=== PATIENT | female | born 1960 | race Caucasian/White ===

== ENCOUNTER → 2019-12-01 10:36 | Outpatient (CLI) | payer OTHER, SELFPAY ==
[2019-12-01 12:18] LABS: Absolute Lymphocyte Count 1.64 X10^3/uL (0.83-4.51); Absolute Neutrophil Count 2.9 X10^3/uL (2.0-7.7); Basophil# 0.05 X10^3/uL; Eosinophil# 0.31 X10^3/uL; Eosinophils% 5.9 % (0-5); Hemoglobin 14.1 g/dL (12.0-15.0); Lymphocyte # 1.64 X10^3/ul (4.0); Lymphocyte % 31.3 % (19-41); Mean Corp Hgb Conc 33.6 g/dL (32-36); Mean Corpuscular Hgb 31.1 pg (27.0-32.0); Mean Corpuscular Volume 92.5 fL (81-99); Mean Platelet Vol. 9.7 fl (6.2-12.0); Monocyte# 0.34 X10^3/uL; Monocyte% 6.5 % (0-10); NRBC Flagged by Analyzer 0 % (0-5); Neutrophil # 2.88 X10^3/uL (2.7-7.7); Neutrophil % 54.9 % (47-70); Platelet Count 205 K/mm3 (150-450); RBC Distribution Width CV 11.9 % (11.6-14.6); RBC Distribution Width SD 41.1 fl (35.1-43.9); Red Blood Count 4.54 M/mm3 (4.2-5.4); White Blood Count 5.2 K/mm3 (4.4-11.0)
[2019-12-01 12:43] LABS: ALB/GLOB Ratio 1.1 RATIO (0.9-2.4); AST(SGOT) 27 U/L (15-37); Alanine Aminotransfer ALT/SGPT 27 U/L (13-56); Albumin, Serum 3.5 g/dL (3.2-5.0); Alkaline Phosphatase 96 U/L (45-117); Anion Gap 6 (5-15); BUN 11 mg/dL (7-18); BUN/Creat Ratio 14.2 RATIO (10-20); Calcium,Total 8.9 mg/dL (8.5-10.1); Chloride 106 mmol/L (98-107); Creatinine, Serum 0.78 mg/dL (0.55-1.02); EST Glomerular Filtration Rate 81 mL/min (>60); Est Glom Filt Rate - Afr Amer 98 mL/min (>60); Globulin 3.2 g/dL (2.2-4.2); Glucose 87 mg/dL (74-106); Potassium 3.8 mmol/L (3.5-5.1); Protein, Total 6.7 g/dL (6.4-8.2); Sodium Level 141 mmol/L (136-145)
== END ==
PROVIDERS: Family Medicine; Visit Provider Podiatrist
DX: Z01.818 Encounter for other preprocedural examination (principal)
CPT/HCPCS: 36415; 80053; 85025

== ENCOUNTER 2019-12-12 08:27 | Day surgery (SDC) | payer OTHER, SELFPAY ==
[2019-12-12 08:42] VITALS: BP 146/97; PULSE 67; RESP 16; TEMP 37; O2SAT 100; BMI 20.6
[2019-12-12] MEDS: Lactated Ringers 1,000 ML 100 ML IV ×2 (08:49→14:06)
[2019-12-12] MEDS: Cefazolin 2 GM in 0.9% Normal Saline 100 ML IV (09:45)
--- NOTE | 2019-12-12 10:00 | RAD_ITS ---
STUDY: X-RAY - LEFT FOOT CLINICAL: Female, 59 years old. Intraoperative documentation images of arthrodesis and bunionectomy. TECHNIQUE: 2 intraoperative digital documentation view(s) of the foot. COMPARISON: None. FINDINGS: 2 minutes and 24 seconds of exposure time was utilized for a total DAP of 17.1229 cGy/cm2. 2 images show arthrodesis of the first TMT joint. No complications are identified. RAD/Foot min 3 Views IMPRESSION: Intraoperative digital documentation images as described. Electronically Signed: Ebenezer Oakes MD at 16:03 EST , Service support ,
--- NOTE | 2019-12-12 10:00 | BUN_PTH ---
PATIENT: RICK KAUR LOC: [facility] [place] U#:[id number] AGE/SX: 59/F ROOM: RE12/12/[address]: Dr. Dax Glez DPM : 1960 BED: DIS: 12/12/2019 SPEC #: [id number] RECD: 12/12/19 13:23 STATUS: HILDA REAbel #: [id number] KEVIN: 12/12/19 10:[address]: Dax Glez DEPT: SURGICAL PATHOLOGY RECD BY: Nany Abebe ENTERED: 12/15/19 08:37 SP TYPE: BUNION OTHR DR: Dr. Adis Spann MD Tissues: A - Bony tissue, NOS B - Bony tissue, NOS Procedures: Decalcification bone/plaque Surgery Specimen Level III HEADER OPERATION: First metatarsal cuneiform lapidus arthrodesis / fusion bunionectomy PRE-OP DIAGNOSIS: Left foot bunion TISSUE SUBMITTED: A - Left foot bunion, B - Second metatarsal plantar plate MICROSCOPIC DIAGNOSIS A. Left foot bunion: A piece of bone with reactive changes, clinically bunion. B. Second metatarsal plantar plate: Fragments of dense fibroconnective tissue, cartilaginous tissue and reactive synovial tissue. ANDRE:aiden 12/18/19 MICROSCOPIC DESCRIPTION Slides are reviewed. GROSS DESCRIPTION A - Received in fixative is one container labeled with the patient's name and designated left foot bunion. The specimen consists of a piece of bone measuring 1.5 x 1.5 x 0.3 cm. The entire specimen is submitted in one cassette after decalcification. B - Received in fixative is one container labeled with the patient's name and designated second metatarsal plantar plate. The specimen consists of two pieces of indurated tissue measuring 1 x 1 x 0.2 cm. The entire specimen is submitted in one cassette. / ANDRE:aiden 12/15/19 TC:5 CPT: 13098 x2, 29990
[2019-12-12] MEDS: Bupivacaine Mpf 0.5% 30 ML VIAL (12:54)
--- NOTE | 2019-12-12 13:26 | PCM.OPRPT ---
Report of Operation Date of Procedure: 12/12/19 Pre-Operative Diagnosis: Hallux valgus bunion left foot. Rupture of 2nd MTPJ plantar plate, left foot Post-Operative Diagnosis: Hallux valgus bunion left foot. Rupture of 2nd MTPJ plantar plate, left foot. Adhesions flexor tendons 2nd MTPJ, left foot Surgery/Procedure Performed:: 1st metatarsal cuneiform arthrodesis lapidus bunionectomy, left foot. 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 Snehal Mcclendon Type of Anesthesia:: General, Local Specimen's removed: Bunion left foot sent to pathology. Debrided plantar plate 2nd MTPJ left foot sent to pathology Estimated Blood Loss (mL): 30mL Description of Procedure: Indications: This is a 59 year old female with chronic left hallux valgus bunion and sub 2nd metatarsal phalangeal joint pain despite nonsurgical treatment. She has difficulty walking and doing daily activities due to the pain. Pre op workup included foot xrays, as well as MRI. MRI confirmed left sub 2nd MTPJ plantar plate rupture. Patient has clinical hallux valgus bunion with 1st ray hypermobility. There is noted instability to the left 2nd MTPJ plantar plate. Since symptoms persist despite nonsurgical care we discussed surgical options. We discussed the conditions and treatment options. From surgical standpoint we discussed 1st tarsometatarsal lapidus arthrodesis bunionectomy with repair of 2nd MTPJ plantar plate/flexor tendon. We did discuss possible 2nd metatarsal shortening osteotomy. Reviewed the procedures, possible benefits vs risks, goals, expectations, and estimated healing time. Generally speaking advised that post operatively he will need to be nonweightbearing for at least 3-4 weeks, then 4 weeks in a walking immobilizing boot, possibly longer, advised it may take 12 months or more for complete healing. She expressed understanding and agreement. No guarantees were given nor implied. No warranties were given. Patient freely signed the consent forms and elected to proceed forward with the procedures. Operative procedure: The patient was brought back into the operating room and was placed on the operating room table in the supine position. Patient was carefully secured to the operating room table with a safety belt around patient's waist. A timeout was performed and the patient was properly identified and the surgical plan was confirmed. The patient did received 2g of intravenous Cefazolin for antibiotic prophylaxis. The patient received general anesthesia per the anesthesia team. A well padded pneumatic tourniquet was applied around the left ankle. The left foot was scrubbed, prepped and draped in the usual aseptic fashion. Further attention was directed to the left foot. There was noted to be hallux valgus bunion with 1st toe partially underriding the 2nd toe, the hallux was laterally deviated, there was hypermobility of the 1st ray, there was exostosis to the medial 1st metatarsal head, there was noted to be positive dorsal drawer to the 2nd metatarsal phalangeal joint. The left foot was exsanguinated using an Esmarch bandage and the ankle pneumatic tourniquet was inflated to 250mmHg. A total of 10mL of 0.5% Bupivacaine plain was given as a local nerve block around the 1st and 2nd rays on the left foot. Left 1st tarsometatarsal Lapidus arthrodesis bunionectomy: A linear longitudinal skin incision was medially along the medial 1st metatarsal cuneiform joint as well as overlying the 1st metatarsal phalangeal joint. This was done using a 15 blade. Careful dissection was completed down to the capsule of the 1st metatarsal cuneiform joint, and it was incised using a 15 blade and partially reflected exposing the joint surfaces. The tibialis anterior tendon was kept intact on the 1st cuneiform. All cartilage from the 1st metatarsal cuneiform joint surfaces (posterior aspect of the base of the 1st metatarsal and the anterior aspect of the medial cuneiform) were debrided away and was removed down to bleeding bone. This was done with a curette as well as a powered rasp and saw, being sure not to cause osteonecrosis. The site was flushed out with copious amounts of normal saline solution. The surfaces were fenestrated using a powered drill to aid fusion. The 1st metatarsal was reduced into normal position. The site was fixated use rigid open reduction internal fixation, using 1 Arthrex cannulated 3.5mm FT compression screw as well as 1 Arthrex plantar plate, using a total of 4 locking screws, and 1 partially threaded cannulated cortical screw across the fusion site. There was very good compression and bone to bone contract with the prepped fusion site, in good alignment.The fusion site was rigid and very stable. This was checked and confirmed with intraoperative fluoroscopy. There was noted to be some intercuneiform instability and the proximal locking screws did got across the 1st and 2nd cuneiform joint and also added extra cannulated 3.5mm FT compression screw across the 1st and 2nd inter cuneiform joint. This was all done using rigid open reduction internal fixation technique. There was excellent stability present. There was noted to be a residual medial and dorsal eminence to the 1st metatarsal head. Careful dissection was completed down to the 1st metatarsal phalangeal joint capsule and it was incised, it was partially reflected. The medial eminence was resected using a powered sagittal saw, the resected bone was sent to pathology. Also, there was noted to be significant contracture of the lateral 1st metatarsal phalangeal joint as well as the adductor hallucis tendon which was causing continued lateral deviation of the 1st toe into the 2nd toe. Therefore a small skin incision was overlying the dorsal lateral 1st metatarsal phalangeal joint. Dissection was completed down to the lateral capsule of the 1st MTPJ and adductor hallucis tendon which were released using a 15 blade. The hallux was now in rectus position. There was was now normal range of motion to the 1st metatarsal phalangeal joint. There was smooth normal gliding range of motion of the 1st metatarsal phalangeal joint at this time with normal alignment. The joint was in good alignment. The surgical site was flushed out with copious amounts of normal saline solution. Tissues were healthy and viable at this time. The subcutaneous tissue layers were reapproximated using 3-0 Vicryl and 4-0 Vicryl and the skin was reapproximated using 4-0 Monocryl. Cavailon was painted to the edges of the sutured skin incision and steristrips were applied across the sutured skin incision. Left 2nd metatarsal phalangeal joint plantar plate repair/flexor tenolysis: A curvilinear skin incision was made overlying the plantar 2nd metatarsal phalangeal joint using a 15 scalpel blade. Careful dissection was completed down through the subcutaneous tissue layer. The flexor tendon sheath was identified, there were significant adhesions noted. The sheath was incised carefully being sure not to injure the tendons, and the adhesions of the flexor tendons were released (tenolysis) using a 15 blade. Otherwise the flexor tendons appeared healthy and viable, and they were retracted safely out of the way. The plantar plate was visualized and there was noted to be severe thickening and degeneration present, there was noted to be a complete rupture of the lateral plantar plate at the level of the plantar aspect of the MTPJ. There was instability of the 2nd MTPJ when stressing it. The plantar plate was debrided of all nonviable tissue, and this was sent to pathology as specimen. The plantar plate tear was repaired. In order for this to be completed a mini suturetak (Arthrex) was placed to the proximal phalanx bone. This was completed because there was a complete rupture of the plantar plate with nothing to suture / no tissue at the level of the base of the proximal phalanx, therefore the bone anchor had to be placed. The sutures were weaved through the proximal portion of the remaining plantar plate and this portion was advanced to the base of the proximal phalanx. This was repaired holding the 2nd toe in a slight plantarflexed position. This was reinforced with 0 prolene. At this time there was noted to be negative dorsal drawer test, and now there was excellent stability present to the plantar plate. Alignment of the joint was anatomic, and position of the 2nd toe was rectus in all planes when loading the foot. The site was flushed out with copious amounts of normal saline solution. The subcutaneous tissue was reapproximated using 4-0 Vicryl and the skin was reapproximated using 3-0 Nylon. It was determined a 2nd metatarsal osteotomy would not be completed as there is now excellent stability of the 1st ray. An additional 20 mL of 0.5% Bupivacaine plain was given as a local nerve block around the 1st and 2nd rays. During the above procedure the pneumatic tourniquet was deflated first at 90 minutes, was down for 15 minutes, and was reinflated for an additional 29 minutes (total tourniquet time was 119 minutes), and there was immediate return of warmth and perfusion to the foot each time it was deflated, including to all 5 toes. CFT < 2 seconds to all toes. There was hemostasis achieved prior to incision closure. A dressing was applied which consisted of Betadine soaked adaptic, 4x4 gauze, Kerlix and dee bandage. Of note all vital structures, including all vital neurovascular structures were properly identified, they were protected and retracted as necessary throughout the above procedures. The patient tolerated the above procedure well and the anesthesia well with no complications. The patient was transported from the operating room to the recovery room with vital signs stable and in good condition. Post operative orders were placed, post operative instructions were reviewed with the patient several times pre operatively (today and pre op visits in office) - no weightbearing left foot, keep foot elevated for at least 50 minutes of every hour, keep dressing clean, dry and intact, follow up with me within 1 week in office - sooner if needed. This was typed out and these written instructions were also reviewed with patient and given to patient to take home. Percocet 5/325mg PO q 6 hours as well as Ibuprofen 600mg PO q 6 hours was prescribed to help with post op pain control. Aspirin 325mg PO once a day to help prevent a blood clot (patient declines hx of DVT, or hx of clotting disorder, no family hx of clotting disorder, patient relates her father has hx of injuring leg and subsequently developed a DVT and now is on blood thinner), also Augmentin 500/125mg PO q 12 hours was prescribed to help prevent infection as well. This was discussed with patient as well. OARRS was checked prior to prescribing. Patient relates he already has a walker as well as a knee walker at home she will use. A surgical shoe was also fitted and dispensed for left foot to help keep the foot protected. With patient's consent I did review the above with patient's Kash, who was here with her today. Grafts/Implants Used: 1 arthrex plantar plate w/ screws, mini suture denzel anchor 2nd toe, left - Complications None
--- NOTE | 2019-12-12 13:28 | PCM.DC.POD ---
Discharge Diet: Light diet - advance as tolerated Discharge Activity: May Not Drive, Use Walker Weight Bearing Status: No weight bearing - Strict nonweightbearing left foot Keep extremity elevated above heart level: Left Leg - Keep left foot elevated with pillows for at least 50 minutes of every hour Call your doctor if your incision/area has: Continuous Slow Oozing, Sudden Increased Bleeding, Foul Smelling Discharge Call your doctor if you observe: Fever of 101 or Higher, Coldness, Increased Pain, Chest pain, Calf discomfort, Uncontrolled pain Cleanse incision/area with: Do not get Incision Wet, Keep Dressing Clean & Dry Allergies/Adverse Reactions: Allergies codeine Adverse Reaction (Verified 12/03/19 09:39) PT UNSURE OF REACTION hallucinations medical tape Allergy (Uncoded 12/03/19 09:39) Rash Medications to take at Discharge Gluc Stovall/Chondro Stovall A/Vit C/Mn [Glucosamine-Chondroitin Cap] 1 ea PO QHS 12/03/19 Lisinopril [Prinivil] 10 mg PO QHS 12/03/19 Multivit-Minerals/Folic Acid [Women's Multivitamin Gummies] 1 tab PO QHS 12/03/19 [place]-3/Dha/Epa/Fish Oil [Fish Oil 1,000 mg Softgel] 1 ea PO QHS 12/03/19 Ibuprofen 600 mg PO Q6H #40 tab 12/12/19 Oxycodone HCl/Acetaminophen [Percocet 5/325] 1 - 2 tablet PO Q6H PRN PRN 4 Days #30 tablet 12/12/19 The following prescriptions were given: Ibuprofen 600 mg PO Q6H #40 tab Transmission Status: Pending to [facility] Oxycodone HCl/Acetaminophen [Percocet 5/325] 1 - 2 tablet PO Q6H PRN PRN 4 Days #30 tablet PRN Reason: Pain Transmission Status: Sent to [facility] Primary Care Physician: Adis Spann MD [Primary Care Provider] - Test Results: Test results from this visit will be discussed in further detail at your follow-up appointment, if applicable. Please Follow Up With: Dax Glez DPM - Dr. Glez cell: [phone] When: 1 week, sooner if needed. If needed over weekend call Dr. Glez
[2019-12-12 13:33] VITALS: BP 139/90; BP 146/97; PULSE 84; RESP 16; TEMP 36.2; O2SAT 100
[2019-12-12 13:45] VITALS: BP 144/97; BP 146/97; PULSE 62; RESP 16; O2SAT 100
--- NOTE | 2019-12-12 13:57 | RAD_ITS ---
STUDY: X-RAY - LEFT FOOT CLINICAL: Female, 59 years old. Postoperative evaluation. TECHNIQUE: 3 view(s) of the foot. COMPARISON: None. FINDINGS: Plate and screw fixation of the first and second cuneiforms and the first tarsometatarsal joint. 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 Minimal soft tissue swelling at the surgical site. Ossification of the distal Achilles tendon. RAD/Foot min 3 Views IMPRESSION: Plate and screw fixation of the first tarsometatarsal joint without complications. Electronically Signed: Ebenezer Oakes MD at 16:07 EST , Service support ,
[2019-12-12 14:00] VITALS: BP 146/97; BP 162/92; PULSE 63; RESP 16; O2SAT 100
[2019-12-12 14:22] VITALS: BP 142/92; BP 146/97; PULSE 57; RESP 16; TEMP 36.5; O2SAT 100
[2019-12-12 15:45] VITALS: BP 141/90; BP 146/97; PULSE 80; RESP 16; TEMP 37; O2SAT 100
== END 2019-12-12 15:45 | disposition home or self-care (01) ==
LOC: SDC 08:29 → AC 08:29
PROVIDERS: PCP Family Medicine; Referring Provider Podiatrist; Visit Provider Podiatrist
PROC: (CPT 28292; principal; 2019-12-12 09:45)
DX: M20.12 Hallux valgus (acquired), left foot (principal); M21.612 Bunion of left foot; Z20.828 Contact with and (suspected) exposure to other viral communicable diseases; Z79.899 Other long term (current) drug therapy; I10 Essential (primary) hypertension
CPT/HCPCS: 01480; 28200; 28297; 73630; 76000; 87426; 88304; 88305; 88311; C1713; C9803; J7120; J2405

== ENCOUNTER → 2020-04-14 09:52 | Outpatient (CLI) | payer OTHER, SELFPAY ==
[2020-04-14 12:30] LABS: Absolute Neutrophil Count 2.6 X10^3/uL (2.0-7.7); Basophil# 0.04 X10^3/uL; Basophil% 0.9 % (0-1); Eosinophil# 0.23 X10^3/uL; Eosinophils% 4.9 % (0-5); Hematocrit 41.8 % (37-47); Hemoglobin 14.4 g/dL (12.0-15.0); Mean Corp Hgb Conc 34.4 g/dL (32-36); Mean Corpuscular Hgb 30.9 pg (27.0-32.0); Mean Corpuscular Volume 89.7 fL (81-99); Mean Platelet Vol. 9.8 fl (6.2-12.0); Monocyte# 0.32 X10^3/uL; Monocyte% 6.8 % (0-10); NRBC Flagged by Analyzer 0 % (0-5); Neutrophil # 2.59 X10^3/uL (2.7-7.7); Neutrophil % 55.2 % (47-70); Platelet Count 201 K/mm3 (150-450); RBC Distribution Width CV 11.7 % (11.6-14.6); RBC Distribution Width SD 37.8 fl (35.1-43.9); Red Blood Count 4.66 M/mm3 (4.2-5.4); White Blood Count 4.7 K/mm3 (4.4-11.0)
[2020-04-14 13:01] LABS: ALB/GLOB Ratio 1.2 RATIO (0.9-2.4); AST(SGOT) 22 U/L (15-37); Alanine Aminotransfer ALT/SGPT 22 U/L (13-56); Albumin, Serum 3.8 g/dL (3.2-5.0); Alkaline Phosphatase 99 U/L (45-117); Anion Gap 6 (5-15); BUN 14 mg/dL (7-18); BUN/Creat Ratio 18.5 RATIO (10-20); Calcium,Total 9.2 mg/dL (8.5-10.1); Chloride 105 mmol/L (98-107); Creatinine, Serum 0.76 mg/dL (0.55-1.02); EST Glomerular Filtration Rate 83 mL/min (>60); Est Glom Filt Rate - Afr Amer 101 mL/min (>60); Globulin 3.2 g/dL (2.2-4.2); Glucose 89 mg/dL (74-106); Potassium 4.3 mmol/L (3.5-5.1); Sodium Level 141 mmol/L (136-145)
== END ==
PROVIDERS: PCP Family Medicine; Referring Provider Family Medicine; Visit Provider Family Medicine
DX: Z01.818 Encounter for other preprocedural examination (principal)
CPT/HCPCS: 36415; 80053; 85025

== ENCOUNTER 2020-05-14 07:47 | Day surgery (SDC) | payer OTHER, SELFPAY ==
--- NOTE | 2020-05-04 15:26 | NURSING ---
patient had moderna vaccine x2 last dose 04/09/20
[2020-05-14] VITALS (8 sets, daily range): BP systolic 130–153; BP diastolic 74–89; PULSE 50–63; RESP 16–18; TEMP 36.2–37.1; O2SAT 99–100; BMI 20.6
[2020-05-14] MEDS: Lactated Ringers 1,000 ML 100 ML IV (08:33)
--- NOTE | 2020-05-14 09:30 | BUN_PTH ---
PATIENT: RICK KAUR LOC: [facility] – [place] U#:[id number] AGE/SX: 59/F ROOM: RE05/14/[address]: Dr. Dax Glez DPM : 1960 BED: DIS: 05/14/2020 SPEC #: [id number] RECD: 05/14/20 12:38 STATUS: HILDA REAbel #: [id number] KEVIN: 05/14/20 09:[address]: Dax Glez DEPT: SURGICAL PATHOLOGY RECD BY: Nany Abebe ENTERED: 05/14/20 13:07 SP TYPE: BUNION OTHR DR: Dr. Adis Spann MD Tissues: Bony tissue, NOS Procedures: Decalcification bone/plaque Surgery Specimen Level III HEADER OPERATION: Foot first metatarsal cuneiform arthrodesis lapidus bunionectomy PRE-OP DIAGNOSIS: Hallux valgus bunion, contracted second toe TISSUE SUBMITTED: Right foot bunion MICROSCOPIC DIAGNOSIS Right foot bunion, bunionectomy: A piece of bone with reactive changes, clinically hallux valgus bunion, contracted second toe. A piece of dense fibroconnective tissue. ANDRE:aiden 05/19/2020 MICROSCOPIC DESCRIPTION Slides are reviewed. GROSS DESCRIPTION Received in fixative is one container labeled with the patient's name and designated right foot bunion. The specimen consists of two pieces of bone and soft tissue that in aggregate measure 1.5 x 2 x 0.3 cm. The specimen is totally submitted in one cassette after decalcification. / ANDRE:aiden 05/14/20 TC:5 CPT: 83479, 50752
--- NOTE | 2020-05-14 09:30 | RAD_ITS ---
STUDY: X-RAY - RIGHT FOOT CLINICAL: Female, 59 years old. PAIN TECHNIQUE: 5 view(s) of the foot. COMPARISON: None. FINDINGS: Intraoperative spot fluoroscopy images of the foot demonstrates postsurgical changes at the base of the first metatarsal. RAD/Foot 2 Views IMPRESSION: As above Electronically Signed: Driss Zavala DO at 23:44 EDT Tel , Service support ,
--- NOTE | 2020-05-14 09:39 | DCINST_ITS ---
Discharge Diet: Light diet - advance as tolerated Discharge Activity: May Not Drive, Use Walker, Use Crutches Weight Bearing Status: No weight bearing - No weightbearing right foot. Keep extremity elevated above heart level: Right Leg - Keep right foot elevated with pillows for at least 50 minutes of every hour. Call your doctor if your incision/area has: Continuous Slow Oozing, Sudden Increased Bleeding, Foul Smelling Discharge Call your doctor if you observe: Fever of 101 or Higher, Shortness of breath, Chest pain, Increased palpitations (irregular heartbeat), Calf discomfort, Uncontrolled pain Cleanse incision/area with: Do not get Incision Wet, Keep Dressing Clean & Dry Additional Instructions: After Surgery Prescriptions: 1. Percocet (Oxycodone/Acetaminophen) 5mg/325mg tablets: Take 1 - 2 tablets by mouth every 6 hours as needed for pain. 2. Ibuprofen 600mg tablets: Take 1 tablet by mouth every 6 hours as needed for pain. 3. Aspirin 325mg tablet: Take 1 tablet by mouth once a day in the morning. Wait 6 hours before, and after, taking Ibuprofen dose when taking the Aspirin dose. 4. Augmentin (Amoxicillin/Potassium Clav) 500mg/125mg tablet: Take 1 tablet by mouth every 12 hours to help prevent an infection. Allergies/Adverse Reactions: Allergies codeine Adverse Reaction (Verified 05/14/20 08:16) PT UNSURE OF REACTION hallucinations medical tape Allergy (Uncoded 05/14/20 08:16) Rash Medications to take at Discharge Gluc Stovall/Chondro Stovall A/Vit C/Mn [Glucosamine-Chondroitin Cap] 1 ea PO QHS 12/03/19 Lisinopril [Prinivil] 20 mg PO QHS 12/03/19 Multivit-Minerals/Folic Acid [Women's Multivitamin Gummies] 2 tab PO QHS 12/03/19 [place]-3/Dha/Epa/Fish Oil [Fish Oil 1,000 mg Softgel] 1 ea PO QHS 12/03/19 Atorvastatin Calcium [Lipitor] 10 mg PO QHS 04/30/20 Ibuprofen 600 mg PO Q6H PRN 04/30/20 Amoxicillin/Potassium Clav [Augmentin 500-125 Tablet] 1 each PO Q12H #14 tablet 05/14/20 Oxycodone HCl/Acetaminophen [Percocet 5-325 mg Tablet] 1 - 2 each PO Q6H PRN PRN 3 Days #30 tablet 05/14/20 The following prescriptions were given: Amoxicillin/Potassium Clav [Augmentin 500-125 Tablet] 1 each PO Q12H #14 tablet Transmission Status: Received by [facility] Oxycodone HCl/Acetaminophen [Percocet 5-325 mg Tablet] 1 - 2 each PO Q6H PRN PRN 3 Days #30 tablet PRN Reason: Pain Score 4-10 Transmission Status: Received by [facility] Orders to be completed after discharge: COVID 19 AG RAPID (RN COLLECT) Time Frame: 05/06/20, Facility: [facility], Location: Laboratory Primary Care Physician: Adis Spann MD [Primary Care Provider] - Test Results: Test results from this visit will be discussed in further detail at your follow- up appointment, if applicable. Please Follow Up With: Dax Glez DPM - Call Dr. Glez over weekend if needed. Page through physician's registry at [facility]: [phone]; cell: [phone] When: May 20 at [facility], sooner if needed.
[2020-05-14] MEDS: Cefazolin 2 GM in 0.9% Normal Saline 100 ML IV (10:02)
[2020-05-14] MEDS: Bupivacaine 0.5% PF 10 ML VIAL ×2 (10:18→12:50)
--- NOTE | 2020-05-14 13:11 | OP.PCM_ITS ---
Report of Operation Date of Procedure: 05/14/20 Pre-Operative Diagnosis: Hallux Valgus Bunion and contracture of right 2nd toe - right foot Post-Operative Diagnosis: Same Surgery/Procedure Performed:: 1st tarsometatarsal lapidus arthrodesis bunionectomy right foot. 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 Deep Baker Type of Anesthesia:: General, Local Specimen's removed: Bunion from right foot sent to pathology Estimated Blood Loss (mL): 20mL Description of Procedure: Indications: This is a 59 year old female with chronic right hallux valgus bunion pain as well as deviated 2nd toe despite nonsurgical treatment. She had previous bunionectomy in 1980 however it has recurred. She is very active, is a walking and runner, on feet a lot. She has had difficulty walking, wearing shoes, and doing her activities due to this condition. She had left foot Lapidus bunionectomy and 2nd MTPJ plantar plate repair December 2019 and has done well and would like to proceed with right foot now. Patient has clinical hallux valgus bunion with 1st ray hypermobility with lateral deviation of the 2nd toe on the right foot. We discussed surgical options. We discussed the conditions and treatment options. From surgical standpoint we discussed 1st tarsometatarsal lapidus arthrodesis bunionectomy with capsulotomy of the 2nd MTPJ (metatarsal phalangeal joint). Reviewed the procedures, possible benefits vs risks, goals, expectations, and estimated healing time. It was estimated that post operatively she will need to be nonweightbearing for at least 4 weeks, then 4 weeks in a walking immobilizing boot, advised it may take 12 months or more for complete healing. She expressed understanding and agreement. No guarantees were given nor implied. No warranties were given. Patient freely signed the consent forms and elected to proceed forward with the procedures. Operative procedure: The patient was brought back into the operating room and was placed on the operating room table in the supine position. Patient was carefully secured to the operating room table with a safety belt around patient's waist. A timeout was performed and the patient was properly identified and the surgical plan was confirmed. The patient did received 2g of intravenous Cefazolin for antibiotic prophylaxis. The patient received general anesthesia per the anesthesia team. A well padded pneumatic tourniquet was applied around the right ankle. The right foot was scrubbed, prepped and draped in the usual aseptic fashion. Further attention was directed to the right foot. There was noted to be hallux valgus bunion with 1st toe partially underriding the 2nd toe, the hallux was laterally deviated, there was hypermobility of the 1st ray, there was exostosis to the medial 1st metatarsal head, there was noted to be lateral deviation of the 2nd toe into the 3rd toe. The right foot was exsanguinated using an Esmarch bandage and the ankle pneumatic tourniquet was inflated to 250mmHg. A total of 20mL of 0.5% Bupivacaine plain was given as a local nerve block around the 1st and 2nd rays on the right foot. Right 1st tarsometatarsal Lapidus arthrodesis bunionectomy: A linear longitudinal skin incision was medially along the medial 1st metatarsal cuneiform joint as well as overlying the 1st metatarsal phalangeal joint. This was done using a 15 blade. Careful dissection was completed down to the capsule of the 1st metatarsal cuneiform joint, and it was incised using a 15 blade and partially reflected exposing the joint surfaces. The tibialis anterior tendon was kept intact on the 1st cuneiform. All cartilage from the 1st metatarsal cuneiform joint surfaces (posterior aspect of the base of the 1st metatarsal and the anterior aspect of the medial cuneiform) were debrided away and was removed down to bleeding bone. This was done with a curette as well as a powered rasp and saw, being sure not to cause osteonecrosis. The site was flushed out with copious amounts of normal saline solution. The surfaces were fenestrated using a powered drill as well as an osteotome and mallet to aid fusion. The 1st metatarsal was reduced into normal position. The site was fixated use rigid open reduction internal fixation, using 1 Arthrex cannulated 3.5mm FT compression screw as well as 1 Arthrex plantar plate, using a total of 4 locking screws, and 1 partially threaded cannulated cancellous screw across the fusion site. Intercuniform fixation was completed with the 2 locking compression screws. There was very good compression and bone to bone contract with the prepped fusion site, in good alignment. However there was a very slight bone void at the very most medial central aspect of the fusion site and this was packed with cancellous bone chips to aid healing. The fusion site was rigid and very stable. This was checked and confirmed with intraoperative fluoroscopy. This was all done using rigid open reduction internal fixation technique. There was excellent stability present. There was noted to be a residual medial eminence to the 1st metatarsal head. Careful dissection was completed down to the 1st metatarsal phalangeal joint capsule and it was incised, it was partially reflected. The medial eminence was visualized as well as the rest of the joint was visualized as well. There was noted to be degenerative changes to the 1st metatarsal phalangeal joint, particullary on the 1st metatarsal head, medially and dorsally. There is global diffuse cartilage thinning noted as well, but otherwise the cartilage was intact. The medial eminence, as well as the dorsal 1st metatarsal head spurring and degenerative changes were resected using a powered sagittal saw, the resected bone was sent to pathology. Also, there was noted to be significant contracture of the lateral 1st metatarsal phalangeal joint as well as the adductor hallucis tendon which was causing continued lateral deviation of the 1st toe into the 2nd toe. Therefore a skin incision was made overlying the dorsal lateral 1st metatarsal phalangeal joint. Dissection was completed down to the lateral capsule of the 1st MTPJ and adductor hallucis tendon which were very contracted, these were released using a 15 blade. The hallux was now in rectus position. There was was now normal range of motion to the 1st metatarsal phalangeal joint. There was smooth normal gliding range of motion of the 1st metatarsal phalangeal joint at this time with normal alignment. The joint was in good alignment. The surgical site was flushed out with copious amounts of normal saline solution. Tissues were healthy and viable at this time. The capsule and subcutaneous tissue layers were reapproximated using 3-0 Vicryl and 4-0 Vicryl and the skin was reapproximated using 4-0 Monocryl. Cavailon was painted to the edges of the sutured skin incision and steristrips were applied across the sutured skin incision. Left 2nd metatarsal phalangeal joint capsulotomy: A linear skin incision was made overlying the dorsal lateral 2nd metatarsal phalangeal joint using a 15 scalpel blade. Careful dissection was completed down through the subcutaneous tissue layer to the capsule of the joint. It was noted the capsule was very contracted at the lateral aspect and was released using a 15 blade. The medial capsule of the joint was attenuated and was repair using 2-0 Vicryl. This was repaired holding the 2nd toe in a rectus position. Alignment of the joint was anatomic, and position of the 2nd toe was rectus in all planes when loading the foot. There was a very stable plantar plate to the 2nd MTPJ with no instability noted. The site was flushed out with copious amounts of normal saline solution. The subcutaneous tissue was reapproximated using 4-0 Vicryl and the skin was reapproximated using 3-0 Nylon. An additional 10 mL of 0.5% Bupivacaine plain was given as a local nerve block around the 1st and 2nd rays. The pneumatic tourniquet was deflated at 119 minutes, and there was immediate return of warmth and perfusion to the foot after deflating the tourniquet, including to all 5 toes. CFT < 2 seconds to all toes. Hemostasis was achieved. A dressing was applied which consisted of Betadine soaked adaptic, 4x4 gauze, Kerlix and dee bandage. Of note all vital structures, including all vital neurovascular structures were properly identified, they were protected and retracted as necessary throughout the above procedures. The patient tolerated the above procedure well and the anesthesia well with no complications. The patient was transported from the operating room to the recovery room with vital signs stable and in good condition. Post operative orders were placed, post operative instructions were reviewed with the patient pre operatively - no weightbearing left foot, keep foot elevated for at least 50 minutes of every hour, keep dressing clean, dry and intact, follow up with me within 1 week in office - sooner if needed. This was typed out and these written instructions were also reviewed with patient and given to patient to take home. Percocet 5/325mg PO q 6 hours as well as Ibuprofen 600mg PO q 6 hours for pain to help with post op pain control. Aspirin PO once a day to help prevent a blood clot (patient declines hx of DVT, or hx of clotting disorder, no family hx of clotting disorder, patient relates her father has hx of injuring leg and subsequently developed a DVT and now is on blood thinner), also Augmentin 500/125mg PO q 12 hours was prescribed to help prevent infection as well. This was discussed with patient as well. OARRS was checked prior to prescribing. Patient relates he already has crutches as well as a knee walker at home she will use. A surgical shoe was also fitted and dispensed for left foot to help ke ep the foot protected. Patient's Kash, was here with her today. Grafts/Implants Used: 1 Arthrex plantar lapidus plate and screws, cancellous bone chips - Complications None
--- NOTE | 2020-05-14 14:00 | RAD_ITS ---
STUDY: X-RAY - RIGHT FOOT CLINICAL: Female, 59 years old. post op TECHNIQUE: 3 view(s) of the foot. COMPARISON: None. FINDINGS: Postsurgical change at the base of the first metatarsal without evidence of hardware failure or loosening. No acute fracture or dislocation. Expected postoperative soft tissue changes RAD/Foot min 3 Views IMPRESSION: As above Electronically Signed: Driss Zavala DO at 23:44 EDT Tel , Service support ,
== END 2020-05-14 16:00 | disposition home or self-care (01) ==
LOC: SDC 07:48 → AC 07:50
PROVIDERS: PCP Family Medicine; Referring Provider Podiatrist; Visit Provider Podiatrist
PROC: (CPT 28292; principal; 2020-05-14 09:15)
DX: M20.11 Hallux valgus (acquired), right foot (principal); I10 Essential (primary) hypertension; Z79.899 Other long term (current) drug therapy
CPT/HCPCS: 01480; 28270; 28740; 73620; 73630; 76000; 88304; 88311; C1713; J7120; J2405